=== PATIENT | female | born 1980 | race Two or more races ===

== ENCOUNTER 2016-09-01 05:35 | Inpatient (IN) | payer MEDICAID ==
[~2016-09-01] VITALS: Ht 152.4 cm; Wt 71.7 kg
--- NOTE | ~2016-09-01 | HP ---
ADMIT: 09/01/2016 RM/LOC: 223 [facility] MR#: [id number] [address] [facility] [address] [place] [phone] CHER VALDEZ [address] [place] [address] Pre-OP History and Physical SEX: F AGE: 35 : 1980 Corrected: 09/02/2016 1618 ajf DATE OF SERVICE: HISTORY OF PRESENT ILLNESS: The patient is a 35-year-old, 3, para 2-0- 0-1, who presented to Labor and Delivery at 39-0/7th weeks' gestation by ultrasound with estimated date of confinement of 09/08/2016. The patient has a history of previous section x2 and is scheduled for repeat section. The patient's has been complicated by history of first child with esophageal atresia. The patient was seen by Maternal Medicine and ultrasound was noted to be normal. PAST MEDICAL HISTORY: Noncontributory. PAST SURGICAL HISTORY: section x2. CURRENT MEDICATIONS: vitamins daily. ALLERGIES: NO KNOWN MEDICAL ALLERGIES. CURRENT MEDICATIONS: vitamins daily. SOCIAL HISTORY: The patient is . She denies any alcohol, tobacco, or drug use. FAMILY HISTORY: Noncontributory. LABORATORY DATA: Blood type is O-positive, antibody screen negative, HIV negative, gonorrhea and chlamydia negative, rubella immune, RPR nonreactive, hep B surface antigen negative. Normal 1 hour glucose tolerance test, and group B Strep negative. PHYSICAL EXAMINATION: VITAL SIGNS: On admission, vital signs are stable. The patient is afebrile. GENERAL: The patient is alert and oriented, no acute distress. HEART: Regular rate and rhythm without murmurs, gallops, or rubs. LUNGS: Clear to auscultation bilaterally. ABDOMEN: Soft, nontender, gravid. EXTREMITIES: No edema. No calf tenderness. ADMIT: 09/01/2016 RM/LOC: 223 [facility] MR#: [id number] [address] [facility] [address] [place], [place] [phone] CHER VALDEZ [address] [place] [address] Pre-OP History and Physical SEX: F AGE: 35 : 1980 ASSESSMENT AND PLAN: 1. A 35-year-old, 3, para 2-0-0-1 at 39-0/7th weeks' gestation. 2. History of previous section x2. Plan to proceed with repeat low transverse section. The risks, benefits, and alternatives of surgery including, but not limited to risk of bleeding, possibly requiring blood transfusion, risk of infection, the risk of injury to bowel or bladder have been discussed with the patient. She agreed to proceed. 3. History of previous infant with esophageal atresia. The patient has had a normal ultrasound with Maternal Medicine. Kendra Beltre MD/ jeisno JOB #: [id number] CC: Kendra Beltre, Attending Physician Kendra Beltre, Family Physician Corrected: 09/02/2016 1618 shayla
[2016-09-04] MEDS ORDERED: NIPPLECREAM TP (17:29)
[2016-09-04] MEDS ORDERED: MOTRIN-DPS800 MG PO (17:29)
[2016-09-04] MEDS ORDERED: PRENATAL VIT1 TAB PO (17:29)
[2016-09-04] MEDS ORDERED: COLACE-DPS100 MG PO (17:29)
--- NOTE | 2016-10-06 08:40 | OR ---
ADMIT: 09/01/2016 RM/LOC: 223 [facility] MR#: [id number] 2620 [facility] [address] [place] [phone] CHER VALDEZ [address] [place] [address] Operative/Delivery Room Report SEX: F AGE: 35 : 1980 Corrected: 09/02/201631 njv SURGERY DATE: 09/01/2016 SURGEON: Kendra Beltre MD NAME OF PROCEDURE: Repeat low transverse section. SHOT COAT TENDER: Kirsty Nash MD PREOPERATIVE DIAGNOSES: 1. Intrauterine at 39 weeks gestation. 2. History of previous section x2. 3. History of previous with esophageal atresia. POSTOPERATIVE DIAGNOSES: 1. Intrauterine at 39 weeks gestation. 2. History of previous section x2. 3. History of previous with esophageal atresia. FINDINGS: 1. Liveborn female , scores 8 at 1 minute, 9 at 5 minutes. Weight 8 pounds 5 ounces. 2. Normal appearing uterus, tubes, and ovaries bilaterally. ESTIMATED BLOOD LOSS: 500 mL. ANESTHESIA: Spinal. COMPLICATIONS: None. INDICATIONS FOR PROCEDURE: The patient is a 35-year-old, 3, para 2-0- 0-1 who presented to Labor and Delivery at 39 and 0/7th weeks' gestation for scheduled repeat section. The risks, benefits, and alternatives of surgery have been discussed with the patient, and she agreed to proceed. DESCRIPTION OF PROCEDURE: The patient was taken to the operating room where spinal anesthesia was found to be adequate. The patient was placed in dorsal supine position in leftward tilt and prepped and draped in usual sterile fashion. A Pfannenstiel skin incision was made with a scalpel and carried through to the underlying layer of fascia. The fascia was nicked in midline and this incision was extended bilaterally using Cartwright scissors. The superior aspect of the fascial incision was grasped with Elina clamps, elevated, and the underlying rectus muscles were dissected off with Cartwright scissors. In a similar fashion, the inferior aspect of the fascial incision was grasped with Elina clamps, elevated, and the underlying rectus muscles were dissected off with Cartwright scissors. The perineum was entered bluntly and this incision was extended bluntly as well. The bladder blade was then placed. The vesicouterine peritoneum was identified and entered sharply with Metzenbaum scissors. This ADMIT: 09/01/2016 RM/LOC: 223 [facility] MR#: [id number] [address] [phone] CHER VALDEZ [address] [place] [address] Operative/Delivery Room Report SEX: F AGE: 35 : 1980 incision was extended bilaterally and a bladder flap was created digitally. The bladder blade was then replaced. The lower uterine segment was incised with a scalpel. Clear fluid was noted at time of the amniotomy. The uterine incision was then extended bluntly. The 's vertex was grasped. It was noted that the vertex was not engaged and hand was coming down with head as well as a cord. It was rather difficult to deliver the vertex. The fascial incision was extended using bandage scissors. A Kiwi vacuum was then applied and with fundal pressure, the infant's vertex then did deliver. The Kiwi was removed and the remainder of the infant delivered without difficulty as well. The was dried. The cord was clamped and cut and the infant was handed off to the warmer where nursing personnel were in attendance. The placenta then delivered intact. Twenty units of Pitocin were placed in the IV bag to firm the uterus. The uterus was exteriorized and cleared of all clots and debris. The uterine incision was then closed in a running locked fashion using 0 Vicryl. Good hemostasis of the uterine incision was noted. The uterus was replaced in the abdominal cavity. The gutters were checked and cleared of all clots and debris. The uterine incision was again examined and was made hemostatic with electrocautery. The muscles and fascia were examined were noted be hemostatic. The fascial incision was then closed in a running fashion using 0 Vicryl. The subcutaneous layer was made hemostatic with electrocautery and this layer was brought together using interrupted 2-0 plain gut. The skin incision was closed with subcuticular stapler. The patient tolerated the procedure well. All sponge and needle counts were correct. The patient and her recovered in the room in stable condition. Kendra Beltre MD/ jeison JOB #: [id number] CC: Kendra Beltre, Attending Physician Kendra Beltre, Family Physician Corrected: 09/02/2016 0631 njtrena
--- NOTE | 2016-10-20 07:37 | DS ---
ADMIT: 09/01/2016 RM/LOC: 223 [facility] MR#: [id number] [address] [facility] [address] [place] [phone] CHER VALDEZ [address] [place] [address] Discharge Summary SEX: F AGE: 35 : 1980 ADMISSION DATE: 09/01/2016 DISCHARGE DATE: 09/03/2016 FINAL DIAGNOSES: 1. Intrauterine at 39 weeks 0 days estimated gestational age via first trimester ultrasound. 2. Status post repeat low transverse section. 3. History of congenital anomalies in an older child including esophageal atresia resulting in infant . REASON FOR ADMISSION: This is a 35-year-old -0-0-1 at the time of presentation, with intrauterine at 39 weeks 0 days, who [facility]. The patient's had been complicated by history of a child with esophageal atresia with a normal maternal medicine consult and normal anatomy ultrasound this . HOSPITAL COURSE: The patient was admitted. She ultimately underwent a repeat low transverse section and had a female with a weight of 8 pounds 5 ounces and Apgars of 8 and 9. The baby stayed at the maternal bedside following delivery and the baby's hospital course was uncomplicated. The patient's course was also uncomplicated. She is breast feeding. She is meeting discharge criteria and desires to be discharged home today, day two. She is undecided on contraception. She is considering a Mirena IUD and will determine this by her six week visit. DELIVERY INFORMATION: Delivery date 09/01/2016. Delivery time was 0813 hours. 's sex is female. Delivery type was repeat low section. at 1 minute was 8 and at 5 minutes was 9. weight was 8 pounds 5 ounces which is an average gestational age. LABORATORY DATA: All labs final at the time of discharge. DISCHARGE MEDICATIONS: The patient was discharged home on Motrin 800 mg every 8 hours p.r.n., Percocet 5 mg/325 mg one tablet every six hours p.r.n., and Colace b.i.d. p.r.n. for constipation. PATIENT INSTRUCTIONS: The patient was instructed to have pelvic rest for six ADMIT: 09/01/2016 RM/LOC: 223 [facility] MR#: [id number] [address] [address] CHER VALEDZ [address] [place] [address] Discharge Summary SEX: F AGE: 35 : 1980 weeks. Recommended no driving while on narcotics. Recommended lifting restriction of 20 pounds for six weeks. She should notify her physician with temperature of greater than 100.4, if she is having brisk vaginal bleeding that soaks through more than one pad per hour, if any area of her breast becomes red or painful, or if her pain is no longer controlled by pain medications. Recommended general diet as tolerated and increased fluid intake. Discussed symptoms of blues and depression and to contact us immediately should that become a concern. FOLLOWUP: Follow up with Dr. Kendra Beltre in six weeks for visit. The patient was discussed with Dr. Kendra Beltre, who agrees with this above plan. Kirsty Nash MD Resident / Kendra Beltre MD / enag JOB #: [id number] CC: Kendra Beltre MD, Attending Physician Kendra Beltre MD, Family Physician
== END 2016-09-03 17:38 | disposition home or self-care (01) | DRG 766 ==
LOC: 2LDRP 05:35 → BC 05:35 → 2LDRP 05:44 → BC 09-08 08:00
PROVIDERS: ADMIT Obstetrics & Gynecology
PROC: 10D00Z1 Extraction of Products of Conception, Low, Open Approach (ICD-10-PCS; principal; 2016-09-01)
DX: O34.211 Maternal care for low transverse scar from previous cesarean delivery (principal); Z37.0 Single live birth; Z3A.39 39 weeks gestation of pregnancy